=== PATIENT | male | born 1970 | race Caucasian/White ===

== ENCOUNTER 2023-02-19 16:32 | Emergency (ER) | payer OTHER ==
[~2023-02-19] VITALS: Ht 182.9 cm; Wt 77.1 kg
[2023-02-19 19:25] VITALS: BP 128/86; TEMP 98; O2SAT 100
== END 2023-02-19 19:26 | disposition home or self-care (01) ==
LOC: ER 16:32
DX: R09.A2 Foreign body sensation, throat (principal); M54.2 Cervicalgia
CPT/HCPCS: 70490-TC